=== PATIENT | male | born 1985 | race Caucasian/White ===

== ENCOUNTER 2017-10-03 09:08 | Emergency (ER) | payer OTHER ==
[2017-10-03] MEDS ORDERED: Ziprasidone Mesylate 20 MG Vial IM ONE (09:25)
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
[2017-10-03] MEDS ORDERED: Water For Injection, Sterile 20 ML ONE (09:28)
[2017-10-03] MEDS ORDERED: Water For Injection, Sterile 20 ML SDV INJECT SCH (10:00)
[2017-10-03] MEDS ORDERED: LORazepam 2 MG/ML SDV IM ONE (10:11)
--- NOTE | 2017-10-03 10:42 | CR ---
EXAMINATION: Portable chest radiograph. HISTORY: psych FINDINGS: The trachea is midline. The cardiomediastinal silhouette is within normal limits. No pulmonary infilt rates, effusions or pneumothorax. Osseous structures appear unremarkable. IMPRESSION: No acute cardiopulmonary process.
[2017-10-03 11:31] LABS: CHLORIDE,CL 105 mmol/L (98-107); SODIUM,NA 139 mmol/L (136-148)
== END 2017-10-03 12:30 ==
LOC: EDBD 09:08 → MERGE 09:08 → MW.ED 09:08
DX: F23 Brief psychotic disorder (principal); F19.10 Other psychoactive substance abuse, uncomplicated
CPT/HCPCS: 36415; 71045; 80053; 80305; 81001; 83735; 84443; 85025; 93005; 96372; 99285; G0480; J2060; J3486; 99283

== ENCOUNTER 2019-07-24 01:54 | Emergency (ER) | payer BC, OTHER ==
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
[2019-07-24 04:12] LABS: ACETAMINOPHEN <2.0 ug/mL; BLOOD UREA NITROGEN,BUN 9 mg/dL (7.0-18.0); CARBON DIOXIDE,CO2 26.1 mmol/L (21.0-32.0); CHLORIDE,CL 104 mmol/L (98-107); GLUCOSE RANDOM 105 mg/dL (74-106); POTASSIUM,K 4.7 mmol/L (3.5-5.1); SODIUM,NA 141 mmol/L (136-148)
== END 2019-07-24 05:20 ==
LOC: MW.ED 01:54
DX: F39 Unspecified mood [affective] disorder (principal); F31.9 Bipolar disorder, unspecified; F41.9 Anxiety disorder, unspecified; F17.210 Nicotine dependence, cigarettes, uncomplicated; Z79.899 Other long term (current) drug therapy
CPT/HCPCS: 36415; 80053; 80305-QW; 80307; 81001; 83735; 84443; 85025; 93005; 99284; 99284-25